=== PATIENT | male | born 1965 | race Caucasian/White ===

== ENCOUNTER 2021-10-22 18:51 | Inpatient (IN) | payer MEDICAID, SELFPAY ==
--- NOTE | ~2021-10-22 | XR_ITS ---
EXAMINATION: XR chest 1V portable Exam Date/Time: 10/22/2021 20:25 CDT CLINICAL HISTORY: sepsis, URINARY RETENTION, HX HTN, HX CVA Comparison: None available. RESULT: Lines, tubes, and devices: None. Lungs and pleura: Clear. Cardiomediastinal silhouette: Normal cardiomediastinal silhouette. Other: No acute osseous or upper abdominal finding. IMPRESSION: No acute cardiopulmonary process Reviewed, dictated and finalized at location K.
--- NOTE | ~2021-10-22 | CT_ITS ---
EXAMINATION: CT abdomen pelvis wo con DATE: 10/22/2021 20:50 INDICATION: rule out stone, sepsis TECHNIQUE: Computed tomography (CT) of the abdomen and pelvis was performed without intravenous contr ast. Automated exposure control and iterative reconstruction technique were employed. The dose-length product was 1168.48 mGy-cm. COMPARISON: None FINDINGS: Lower thorax: Unremarkable. Liver: Normal. Biliary/Gallbladder: Gallbladder is collapsed. No bile duct dilation. Spleen: Normal. Pancreas: No mass or duct dilation. Adrenals:No mass. Kidneys: No mass, stone, or hydronephrosis. Bilateral perinephric stranding. GI tract: No small or large bowel dilation. Normal appendix. Mesentery/Peritoneum: No ascites, mass, or free air. Retroperitoneum: No mass. Pelvis: Warren catheter. Marked bladder wall thickening and surrounding inflammatory change. Inflammat ion surrounding the prostate, seminal vesicles, extending into the knees rectal fat. Innumerable subc entimeter inguinal and pelvic lymph nodes. Bones/Soft Tissues: Soft tissues and body wall unremarkable. No acute osseous finding. Additional Findings: None. IMPRESSION: Severe cystitis, with possible involvement of the prostate and seminal vesicles, and possible ascendi ng infection. No CT evidence of nephrolithiasis or obstructive uropathy. Reviewed, dictated and finalized at location K. IMPRESSION: Severe cystitis, with possible involvement of the prostate and seminal vesicles , and possible ascending infection. No CT evidence of nephrolithiasis or obstru ctive uropathy.
[2021-10-22 18:56] VITALS: BP 167/104; PULSE 110; RESP 20; TEMP 37.7; O2SAT 96
--- NOTE | 2021-10-22 19:00 | ECG_ITS ---
Measurements Intervals Allison Rate: 107 P: 44 SD: 151 QRS: 68 QRSD: 97 T: 63 QT: 325 QTc: 435 Interpretive Statements SINUS TACHYCARDIA INCOMPLETE RIGHT BUNDLE BRANCH BLOCK LOW QRS VOLTAGE IN PRECORDIAL LEADS MINIMAL Q WAVES- INFERIOR LEADS BASELINE WANDER- I, II, V2 BORDERLINE ECG Electronically Signed On 10-24-2021 12:20:42 CDT by Jonel Bhatia D.O.
--- NOTE | 2021-10-22 19:00 | ED.MALEGU ---
HPI - Male Genitourinary General Chief complaint: Urogenital-Male Stated complaint: UTI Time Seen by Provider: 10/22/21 18:59 Source: patient and EMS Mode of arrival: EMS Limitations: no limitations History of Present Illness HPI Narrative: The patient is a 56-year-old male with history of hypertension, CVA, presenting to the emergency department for evaluation of painful urination. Patient states he has had painful urination over the past 3 days, reports dysuria, hesitancy, frequency. Patient reports he has to strain to urinate. He denies any fever, chills, nausea or vomiting. He denies flank pain, suprapubic pain or testicle pain. Patient denies any penile discharge. Patient denies rhinorrhea, cough, congestion, sore throat. Denies known history of COVID. States he recently received a fourth booster. Patient states that he has been eating and drinking at baseline. Per nurse at [facility] and [facility], they received a phone call from the nurse practitioner joan stating that the patient's white blood cell count was greater than 19, and that she wanted him to be evaluated in the ED. Per nurse at the facility, he is not taking any antibiotics at this time. Pt was recently sent to [facility] following admission at [facility] from 10/06-10/08/2021. Related Data Allergies Allergy/AdvReac Type Severity Reaction Status Date / Time No Known Allergies Allergy Verified 10/22/21 19:01 Review of Systems Review of Systems: CONSTITUTIONAL: Denies fever, chills, or sweats. EYES: Denies visual changes, redness, or discharge. ENT: Denies rhinorrhea, congestion, sore throat, or otalgia. CARDIOVASCULAR: Denies chest pain, palpitations, or edema. RESPIRATORY: Denies cough or dyspnea. GASTROINTESTINAL: Denies abdominal pain, nausea, vomiting, or diarrhea. GENITOURINARY: Reports dysuria without hematuria SKIN: Denies rash or itching. MUSCULOSKELETAL: Denies back pain, joint pain, or myalgia. NEUROLOGIC: Denies headache, numbness, or weakness. [facility] Social History Social History (Updated 10/22/21 @ 19:11 by Catalina Ashford MD) Smoking status: Never smoker Alcohol intake: never Substance use: never Living arrangements: assisted living Occupation/Education: unemployed Gender identity (if verbalized by the patient): Male Exam Narrative: GENERAL: Awake, alert, conversant HEAD: Normocephalic, atraumatic. EYES: PERRLA and EOMI. ENT: Nares clear, no rhinorrhea or epistaxis. Mucous membranes moist. NECK: Supple. CHEST: No respiratory distress, breathing even and non labored HEART: Tachycardic rate, sinus rhythm ABDOMEN:Non distended, non tender throughout all 4 quadrants, no suprapubic tenderness, no flank tenderness, no rebound, no rigidity, No guarding EXTREMITIES: Normal range of motion. No edema. SKIN: Warm, dry, no rash. NEURO:No focal deficits. Alert and oriented x3 Course Vital Signs Vital signs: Vital Signs Temperature 37.7 C H 10/22/21 18:56 Pulse Rate 110 H 10/22/21 18:56 Respiratory Rate 20 10/22/21 18:56 Blood Pressure 167/104 H 10/22/21 18:56 Pulse Oximetry 96 10/22/21 18:56 Temperature 37.7 C H 10/22/21 18:56 Pulse Rate 110 H 10/22/21 18:56 Respiratory Rate 20 10/22/21 18:56 Blood Pressure 167/104 H 10/22/21 18:56 Pulse Oximetry 96 10/22/21 18:56 MDM - Male Genitourinary MDM Narrative Medical decision making narrative: Patient presenting for evaluation of difficulty with urination, found to have urinary retention no significant reproducible pain on exam. Patient noted to be tachycardic, febrile with concern for sepsis. Patient was given 30 mL/kg fluid bolus and started on broad-spectrum antibiotics. He was given IV Tylenol. Noted to have a significant leukocytosis without lactic acidosis. No acute kidney injury. Urinalysis is somewhat concerning for possible urinary tract infection, however patient did have a C
[2021-10-22 19:29] LABS: Basophils Absolute Auto 0.1 K/mm3 (0.0-0.1); Basophils Percent Auto 0.3 % (0.2-1.2); Eosinophils Absolute Auto 0.1 K/mm3 (0-0.3); Eosinophils Percent Auto 0.5 % (0-4.4); Hematocrit 43.1 % (42.0-52.0); Hemoglobin 13.6 g/dL (14.0-18.0); Immature Granulocyte Absolute 0.12 K/mm3 (0.00-0.031); Immature Granulocyte Percent A 0.6 % (0-0.5); Lymphocytes Absolute Auto 1.55 K/mm3 (0.9-3.2); Mean Corpuscular HGB Conc 31.6 g/dl (32-36); Mean Corpuscular Hemoglobin 28.2 pg (26-34); Mean Corpuscular Volume 89.2 fl (80-100); Mean Platelet Volume 9.5 fl (7.4-10.4); Monocytes Absolute Auto 1.3 K/mm3 (0.1-0.6); Monocytes Percent Auto 6.7 % (2.6-8.5); Neutrophils Absolute Auto 16.2 K/mm3 (1.3-6.7); Neutrophils Percent Auto 83.9 % (45.5-73.1); Platelet Count Result 371 k/mm3 (150-375); Red Blood Count 4.83 M/mm3 (4.6-6.20); Red Cell Distribution Width 14.5 % (11.5-14.5); White Blood Count 19.3 K/mm3 (4.5-10.0)
[2021-10-22 19:38] LABS: Lactic Acid Reflex 1.9 mmol/L (0.7-2.0)
[2021-10-22 19:43] LABS: Appearance Urine Slightly Cloudy (Clear); Bilirubin Urine Negative (Negative); Blood Urine 3+ (Negative); Glucose Urine UA Negative (Negative); Ketones Urine Negative (Negative); Leukocyte Esterase Ur Trace LEU/UL (Negative); Nitrate Urine Negative (Negative); Protein Urine 2+ mg/dL (Negative); Specific Grav Ur 1.025 (1.001-1.035)
[2021-10-22 19:49] LABS: Bacteria Urine Trace /hpf; Mucus Urine Rare /lpf; RBC Urine >75 /hpf (0-2); WBC Urine 31-50 /hpf
[2021-10-22 19:53] LABS: Add Urine Microscopic? YES; Color Urine Dark Yellow (Yellow)
[2021-10-22 19:57] LABS: Alanine Aminotransferase 30 U/L (4-50); Alkaline Phosphatase 110 U/L (38-126); Anion Gap 10 mmol/L (8-16); Aspartate Amino Transferase 29 U/L (17-59); Bilirubin,Total 0.3 mg/dL (0.2-1.3); Blood Urea Nitrogen 13 mg/dL (9-20); CRP 14.1 mg/dL (<1.0); Calcium 8.9 mg/dL (8.4-10.2); Carbon Dioxide 24 mmol/L (22-30); Chloride 102 mmol/L (98-107); Estimated CRCL calculation 127 ml/min; Estimated Glomerular Filt Rate > 60; Glucose 213 mg/dL (65-110); Sodium 136 mmol/L (137-145)
[2021-10-22 20:21] LABS: Influenza A QL RT-PCR Negative (Negative); Influenza B QL RT-PCR Negative (Negative); SARS-CoV-2 RNA PCR Negative
[2021-10-22] MEDS: TAMSULOSIN HCL 0.4 MG CAPSULE PO (22:23)
--- NOTE | 2021-10-22 22:30 | PC.NURSE ---
Pt cleansed of bowel incontinence and new depend was placed. Phone was plugged in per request.
[2021-10-22] MEDS: SODIUM CHLORIDE 0.9% IV 500 ML 999 ML (23:15)
[2021-10-22] MEDS: CIPROFLOXACIN 400 MG/D5W 200ML 200 ML 200 MG IVPB (23:16)
--- NOTE | 2021-10-22 23:27 | PC.NURSE ---
Full 3,400ml sespsis fluid bolus has been infused, last 400ml hanging upon transport to the floor. unable to properly document bolus in the MAR and duplicate order was also entered. RN did inform Deepa KEMP on that full bolus has been hung.
[2021-10-23 00:05] VITALS: BP 153/99; PULSE 101; RESP 18; TEMP 37.2; O2SAT 96; BMI 33.5
--- NOTE | 2021-10-23 00:09 | ADMGEN ---
This patient, Art Garner, was admitted to Medical Room 342-01. Patient/family oriented to hospital policies and general routines including ID bracelet, bed and alarms, visiting hours, pain management, procedures, bathroom and other care routines, personal items, smoking policy, room service/diet, and visiting hours. Information on how to activate the Rapid Response Team has been discussed. Patient/Family are encouraged to report perceived risks to care and to ask questions if they do not understand what they are told or what they should do.
--- NOTE | 2021-10-23 02:07 | PM.IMHP ---
H&P: HPI History of Present Illness Date/Time: Greater than 30 minutes spent reviewing chart, evaluating, treating, and counseling patient. Anticipate greater than 48 hours admission, will admit as inpatient. 10/23/21 02:07 56 yo M PMHx of stroke, HTN. Presents with trouble urinating, dysuria, and hematuria for the past 3 days. He states this has never happened before. Has required argueta in the past, but nothing recently and no chronic issues with urinating. Patient denies fevers/chills, SOB, CP, palpitations, n/v/d/c, blood in stool. In ED. labs remarkable for WBC 19.3K, glucose 213. UA positive for blood, leuks. Urine cxs done and blood cx drawn. Patient initially given a dose of rocephin and then started on cipro. Urology consulted. Patient also received 2 L IVF. Chief Complaint: dysuria Review of Systems Review of Systems: 10 point ROS negative unless otherwise specified per HPI [facility] Family History Family History Mother Acute myocardial infarction Father Heart disease Social History Social History (Updated 10/22/21 @ 19:11 by Catalina Ashford MD) Smoking status: Never smoker Alcohol intake: former Substance use: never Living arrangements: assisted living Occupation/Education: unemployed Gender identity (if verbalized by the patient): Male Spiritual care concerns: No Meds Home Medications and Allergies Home Medications Medication Instructions Recorded Confirmed Type acetaminophen 650 mg PO Q4H PRN 10/23/21 10/23/21 History atorvastatin 10 mg PO HS 10/23/21 10/23/21 History cyanocobalamin (vitamin B-12) 50 mcg PO DAILY 10/23/21 10/23/21 History [Vitamin B-12] ergocalciferol (vitamin D2) 50 mcg PO DAILY 10/23/21 10/23/21 History escitalopram oxalate [Lexapro] 10 mg PO HS 10/23/21 10/23/21 History lisinopril 10 mg PO DAILY 10/23/21 10/23/21 History ondansetron 4 mg PO Q6H PRN 10/23/21 10/23/21 History Allergies Allergy/AdvReac Type Severity Reaction Status Date / Time No Known Allergies Allergy Verified 10/22/21 19:01 Vital Signs Vital Signs - 24 hr 10/22/21 18:56 10/23/21 00:05 Temperature 99.9 F H 99 F Pulse Rate 110 H 101 H Respiratory Rate 20 18 Blood Pressure 167/104 H 153/99 H Pulse Oximetry 96 96 Exam Const: General: comfortable and no acute distress HENMT: Mouth: Yes moist mucous membranes Eyes: General: appearance normal, both eyes and all related structures Resp: Auscultation: clear to auscultation bilaterally Cardio: Rate: tachycardic Rhythm: regular rhythm GI: GI Palp: Yes Soft to palpation and Yes Tenderness to palpation present (GI) (suprapubic) Auscultation: normal bowel sounds Other: nontender Urinary Catheter: Urinary Catheter: patent and draining Skin: General skin exam: normal color Extrem: Right lower extremity: normal to inspection Left lower extremity: normal to inspection Psych: Mental Status: mental status grossly normal H&P: Results Labs Labs: Short CBC 10/22/21 Range/Units 19:20 WBC 19.3 H (4.5-10.0) K/mm3 Hgb 13.6 L (14.0-18.0) g/dL Hct 43.1 (42.0-52.0) % Plt Count 371 (150-375) k/mm3 BMP 10/22/21 19:20 Sodium 136 L Potassium 4.0 Chloride 102 Carbon Dioxide 24 BUN 13 Creatinine 0.70 Glucose 213 H Calcium 8.9 Liver Function 10/22/21 Range/Units 19:20 Total Bilirubin 0.3 (0.2-1.3) mg/dL AST 29 (17-59) U/L ALT 30 (4-50) U/L Alkaline Phosphatase 110 (38-126) U/L Albumin 4.0 (3.5-5.1) g/dL Urine 10/22/21 Range/Units 19:20 Urine Color Dark yellow (Yellow) Urine Appearance Slightly cloudy (Clear) Urine pH 6.0 (5.0-9.0) Ur Specific [place] 1.025 (1.001-1.035) Urine Protein 2+ H (Negative) mg/dL Urine Glucose (UA) Negative (Negative) mg/dL Assessment and Plan Assessment and plan (1) Acute prostatitis: Code(s): N41.0 - Acute prostatitis Stat
[2021-10-23 05:32] VITALS: BP 144/92; PULSE 104; RESP 18; TEMP 36.6; O2SAT 95
[2021-10-23 06:19] LABS: Hematocrit 41.2 % (42.0-52.0); Hemoglobin 13.3 g/dL (14.0-18.0); Mean Corpuscular HGB Conc 32.3 g/dl (32-36); Mean Corpuscular Hemoglobin 28.2 pg (26-34); Mean Corpuscular Volume 87.5 fl (80-100); Mean Platelet Volume 9.9 fl (7.4-10.4); Platelet Count Result 376 k/mm3 (150-375); Red Blood Count 4.71 M/mm3 (4.6-6.20); Red Cell Distribution Width 14.2 % (11.5-14.5); White Blood Count 19.3 K/mm3 (4.5-10.0)
[2021-10-23 06:31] LABS: Alanine Aminotransferase 31 U/L (4-50); Albumin Level 3.5 g/dL (3.5-5.1); Alkaline Phosphatase 108 U/L (38-126); Anion Gap 8 mmol/L (8-16); Aspartate Amino Transferase 24 U/L (17-59); Bilirubin,Total 0.4 mg/dL (0.2-1.3); Blood Urea Nitrogen 10 mg/dL (9-20); Calcium 8.7 mg/dL (8.4-10.2); Carbon Dioxide 22 mmol/L (22-30); Chloride 107 mmol/L (98-107); Estimated CRCL calculation 121 ml/min; Estimated Glomerular Filt Rate > 60; Glucose 151 mg/dL (65-110); Potassium 4.1 mmol/L (3.4-5.0); Sodium 137 mmol/L (137-145)
--- NOTE | 2021-10-23 08:45 | P.PNIM_ITS ---
Progress Note: A&P Assessment and Plan (1) Acute prostatitis: Code(s): N41.0 - Acute prostatitis Status: Acute Assessment and Plan: * Abd/Pel found Severe cystitis, with possible involvement of the prostate and seminal vesicles, and possible ascending infection. No CT evidence of nephrolithiasis or obstructive uropathy. * Urinary catheter in place * [place] urine with clot noted in the bag * Trend urine output * Urology consulted thank you for your help * Continue cipro * Urine and blood cx pending (2) Sepsis: Code(s): A41.9 - Sepsis, unspecified organism Status: Acute Assessment and Plan: * Sepsis as evidence by leukocytosis and tachycardia * Received 2 L IVF in the ED * lactic normal * infections looks to be related to UTI however will confirm with culture results * Trend WBC * Cipro on board (3) Hypertension: Code(s): I10 - Essential (primary) hypertension Status: Acute Assessment and Plan: * Current BP is 144/92 * continue lisinopril * Trend BP * Adjust therapy as indicated * Seems to be slightly high probably related to catheter (4) CVA (cerebral vascular accident): Code(s): I63.9 - Cerebral infarction, unspecified Status: Acute Assessment and Plan: * CVA was reported in the history * continue lipitor. * hold on aspirin due to hematuria (5) Depression: Code(s): F32.A - Depression, unspecified Status: Acute Assessment and Plan: * Continue Lexapro (6) Hyperglycemia: Code(s): R73.9 - Hyperglycemia, unspecified Status: Acute Assessment and Plan: * Glucose 151 * HbA1c 6.0 * No home medications * Accu cheks ac/hs * Consider starting sliding scale * trend glucose * adjust therapy as indicated (7) Abnormal urinalysis: Code(s): R82.90 - Unspecified abnormal findings in urine Status: Acute Assessment and Plan: * UA shows dark yellow urine 2+ protein, 3+ blood, trace leukocyte esterase, 31- 50 WBC, Trace bacteria * Cipro currently on board * Urine culture pending * Adjust therapy to culture results * trend urine output Time Spent With Patient Time with patient: Greater than 35 minutes Subjective Date/time seen: 10/23/21 0845 Interval history: 10/23/21 02:07 56 yo M PMHx of stroke, HTN. Presents with trouble urinating, dysuria, and hematuria for the past 3 days. He states this has never happened before. Has required argueta in the past, but nothing recently and no chronic issues with urinating. Patient denies fevers/chills, SOB, CP, palpitations, n/v/d/c, blood in stool. In ED. labs remarkable for WBC 19.3K, glucose 213. UA positive for blood, leuks. Urine cxs done and blood cx drawn. Patient initially given a dose of rocephin and then started on cipro. Urology consulted. Patient also received 2 L IVF. 10/23/21 0845 Patient seems to be doing okay today. Patient stated that he is having some issues with pain from the catheter. He also stated that he was having some frequency. Catheter did exhibit hematuria with clots her in the bag. White cells are still 19.3 today. Patient denies any chest pain, shortness a breath, nausea, vomiting, diarrhea, constipation, weakness or fatigue. Review of Systems Review of Systems: All systems reviewed & are unremarkable except as noted in HPI and below Exam
--- NOTE | 2021-10-23 08:45 | PM.IMPN ---
Progress Note: A&P Assessment and Plan (1) Acute prostatitis: Code(s): N41.0 - Acute prostatitis Status: Acute Assessment and Plan: Abd/Pel found Severe cystitis, with possible involvement of the prostate and seminal vesicles, and possible ascending infection. No CT evidence of nephrolithiasis or obstructive uropathy. Urinary catheter in place [place] urine with clot noted in the bag Trend urine output Urology consulted thank you for your help Continue cipro Urine and blood cx pending (2) Sepsis: Code(s): A41.9 - Sepsis, unspecified organism Status: Acute Assessment and Plan: Sepsis as evidence by leukocytosis and tachycardia Received 2 L IVF in the ED lactic normal infections looks to be related to UTI however will confirm with culture results Trend WBC Cipro on board (3) Hypertension: Code(s): I10 - Essential (primary) hypertension Status: Acute Assessment and Plan: Current BP is 144/92 continue lisinopril Trend BP Adjust therapy as indicated Seems to be slightly high probably related to catheter (4) CVA (cerebral vascular accident): Code(s): I63.9 - Cerebral infarction, unspecified Status: Acute Assessment and Plan: CVA was reported in the history continue lipitor. hold on aspirin due to hematuria (5) Depression: Code(s): F32.A - Depression, unspecified Status: Acute Assessment and Plan: Continue Lexapro (6) Hyperglycemia: Code(s): R73.9 - Hyperglycemia, unspecified Status: Acute Assessment and Plan: Glucose 151 HbA1c 6.0 No home medications Accu cheks ac/hs Consider starting sliding scale trend glucose adjust therapy as indicated (7) Abnormal urinalysis: Code(s): R82.90 - Unspecified abnormal findings in urine Status: Acute Assessment and Plan: UA shows dark yellow urine 2+ protein, 3+ blood, trace leukocyte esterase, 31-50 WBC, Trace bacteria Cipro currently on board Urine culture pending Adjust therapy to culture results trend urine output Time Spent With Patient Time with patient: Greater than 35 minutes Subjective Date/time seen: 10/23/21 0845 Interval history: 10/23/21 02:07 56 yo M PMHx of stroke, HTN. Presents with trouble urinating, dysuria, and hematuria for the past 3 days. He states this has never happened before. Has required argueta in the past, but nothing recently and no chronic issues with urinating. Patient denies fevers/chills, SOB, CP, palpitations, n/v/d/c, blood in stool. In ED. labs remarkable for WBC 19.3K, glucose 213. UA positive for blood, leuks. Urine cxs done and blood cx drawn. Patient initially given a dose of rocephin and then started on cipro. Urology consulted. Patient also received 2 L IVF. 10/23/21 0845 Patient seems to be doing okay today. Patient stated that he is having some issues with pain from the catheter. He also stated that he was having some frequency. Catheter did exhibit hematuria with clots her in the bag. White cells are still 19.3 today. Patient denies any chest pain, shortness a breath, nausea, vomiting, diarrhea, constipation, weakness or fatigue. Review of Systems Review of Systems: All systems reviewed & are unremarkable except as noted in HPI and below Exam Const: General: cooperative, no acute distress, well developed, alert, awake, tired appearing and uncomfortable Nutritional Appearance: well nourished Orientation/consciousness: oriented to person, oriented to place, oriented to time and patient oriented x3 Limitations: no limitations HENMT: Head: normal to inspection Ears: hearing grossly normal bilaterally General nose exam: Normal external nose present Mouth: Yes Normal oral and palatal mucosa present, Yes lip normal and Yes tongue normal Teeth and gingiva: abnormal tooth and associated gingiva and poor
[2021-10-23] MEDS: CHOLECALCIFEROL 1,000 UNITS TABLET 2000 UNITS PO (08:50)
[2021-10-23] MEDS: lisinopriL 10 MG TABLET PO (08:50)
[2021-10-23] MEDS: TAMSULOSIN HCL 0.4 MG CAPSULE PO (08:51)
[2021-10-23] MEDS: CIPROFLOXACIN 400 MG/D5W 200ML 200 ML 200 MG IVPB ×2 (08:52→20:23)
[2021-10-23 14:00] VITALS: BP 152/68; PULSE 97; RESP 18; TEMP 37.2; O2SAT 96
--- NOTE | 2021-10-23 14:39 | WPDURCON ---
Assessment and Plan Assessment and plan (1) Acute prostatitis: Code(s): N41.0 - Acute prostatitis Status: Acute Assessment and Plan: Continue IV antibiotics, tailor to urine culture results. I suspect his urine culture will be negative, but would recommend 14-21 of antibiotics for the prostatitis. (2) Acute urinary retention: Code(s): R33.8 - Other retention of urine Status: Acute Assessment and Plan: Keep argueta catheter in for 7-10 days then f/u for a voiding trial. Start Flomax. Will watch from a distance. (3) BPH (benign prostatic hyperplasia): Code(s): N40.0 - Benign prostatic hyperplasia without lower urinary tract symptoms Status: Acute Urology Consult Note HPI Date Seen: 10/23/21 Requesting Physician: Dusty Eason DO Primary Care Provider: Steve Harvey MD Consult Narrative Narrative: Art Garner is a 56 year old male who presented from [facility] yesterday for acute onset of dysuria, hesitancy, straining and urinary frequency x 3 days. He was afebrile, but tachycardic, has a WBC of 19.3 and a creatinine of 0.70 as well as a UA that is suggestive of a UTI. His urine and blood cultures are still pending. He had a argueta placed and retention was noted but there was no amount of residual urine noted from the ER. He had a CT scan as well that noted severe cystitis, possible involvement of prostate and seminal vesicales as well as ascending infection on 10/22/21. He states that prior to his ER visit he was struggling with a slow stream, hesitancy and straining with urination. He has never been on OAB medication but states he did take a medication for BPH in the past. He has never seen a urologist and doesn't remember what medication he took for BPH. He also denies a history of chronic UTI's. Review of Systems Cardiovascular: Cardiovascular: Denies chest pain Respiratory: Respiratory: Reports no additional respiratory complaints Gastrointestinal: Gastrointestinal: Reports abdominal pain, Denies nausea and Denies vomiting Genitourinary: Genitourinary: Denies hematuria, Denies dysuria, Denies flank pain, Reports urinary frequency, Reports urinary hesitancy and Reports urinary urgency [facility] Family History Family History Mother Acute myocardial infarction Father Heart disease Social History Social History Smoking status: Never smoker Alcohol intake: former Substance use: never Living arrangements: assisted living Occupation/Education: unemployed Gender identity (if verbalized by the patient): Male Spiritual care concerns: No Meds Home Medications and Allergies Home Medications Medication Instructions Recorded Confirmed Type acetaminophen 650 mg PO Q4H PRN 10/23/21 10/23/21 History atorvastatin 10 mg PO HS 10/23/21 10/23/21 History cyanocobalamin (vitamin B-12) 50 mcg PO DAILY 10/23/21 10/23/21 History [Vitamin B-12] ergocalciferol (vitamin D2) 50 mcg PO DAILY 10/23/21 10/23/21 History escitalopram oxalate [Lexapro] 10 mg PO HS 10/23/21 10/23/21 History lisinopril 10 mg PO DAILY 10/23/21 10/23/21 History ondansetron 4 mg PO Q6H PRN 10/23/21 10/23/21 History Allergies Allergy/AdvReac Type Severity Reaction Status Date / Time No Known Allergies Allergy Verified 10/22/21 19:01 Vital Signs Vital Signs - 24 hr 10/22/21 18:56 10/23/21 00:05 10/23/21 05:32 Temperature 99.9 F H 99 F 98 F Pulse Rate 110 H 101 H 104 H Respiratory Rate 20 18 18 Blood Pressure 167/104 H 153/99 H 144/92 H Pulse Oximetry 96 96 95 Exam Resp: Effort & Inspection: normal respiratory effort Cardio: Rate: tachycardic GI: GI Palp: Yes Soft to palpation and No Tenderness to palpation present (GI) : General: Yes no CVA tenderness Urinary Catheter: Urinary Catheter: patent and draining and urine clear Extrem: Ge
[2021-10-23] MEDS: ESCITALOPRAM OXALATE 10 MG TABLET PO (20:23)
[2021-10-23] MEDS: ATORVASTATIN 10 MG TABLET PO (20:23)
[2021-10-23 20:41] VITALS: BP 126/94; PULSE 88; RESP 18; TEMP 37.3; O2SAT 97
[2021-10-24 04:56] VITALS: BP 144/78; PULSE 87; RESP 16; TEMP 36.8; O2SAT 98
[2021-10-24 06:21] LABS: Hemoglobin 13.1 g/dL (14.0-18.0); Mean Corpuscular HGB Conc 31.2 g/dl (32-36); Mean Corpuscular Hemoglobin 28.2 pg (26-34); Mean Corpuscular Volume 90.3 fl (80-100); Mean Platelet Volume 9.9 fl (7.4-10.4); Platelet Count Result 418 k/mm3 (150-375); Red Blood Count 4.65 M/mm3 (4.6-6.20); Red Cell Distribution Width 14.3 % (11.5-14.5); White Blood Count 15.2 K/mm3 (4.5-10.0)
[2021-10-24 06:42] LABS: Alanine Aminotransferase 28 U/L (4-50); Albumin Level 3.6 g/dL (3.5-5.1); Alkaline Phosphatase 94 U/L (38-126); Anion Gap 8 mmol/L (8-16); Aspartate Amino Transferase 26 U/L (17-59); Bilirubin,Total 0.3 mg/dL (0.2-1.3); Blood Urea Nitrogen 13 mg/dL (9-20); Calcium 8.8 mg/dL (8.4-10.2); Carbon Dioxide 23 mmol/L (22-30); Chloride 107 mmol/L (98-107); Estimated CRCL calculation 121 ml/min; Estimated Glomerular Filt Rate > 60; Glucose 139 mg/dL (65-110); Magnesium 2.1 mg/dL (1.6-2.3); Sodium 138 mmol/L (137-145)
--- NOTE | 2021-10-24 07:35 | WPDUROPN2 ---
Progress Note: A&P Assessment and Plan (1) BPH (benign prostatic hyperplasia): Code(s): N40.0 - Benign prostatic hyperplasia without lower urinary tract symptoms Status: Acute (2) Acute prostatitis: Code(s): N41.0 - Acute prostatitis Status: Acute (3) Acute urinary retention: Code(s): R33.8 - Other retention of urine Status: Acute Assessment and Plan: Urine culture growing Gram-negative bacilli. Blood cultures negative, thus far. Continue current antibiotics pending completion of culture results. I would favor deferring voiding trial until Thursday. Subjective Subjective Date/Time Seen: 10/24/21 07:35 Persistent irritable voiding symptoms Review of Systems Cardiovascular: Cardiovascular: Denies chest pain, Denies lightheadedness, Denies palpitations and Denies dyspnea Respiratory: Respiratory: Denies dyspnea Gastrointestinal: Gastrointestinal: Denies diarrhea, Denies nausea and Denies vomiting Genitourinary: Genitourinary: Denies hematuria and Denies dysuria Endocrine: Endocrine: Denies palpitations Exam Const: General: no acute distress Resp: Effort & Inspection: normal respiratory effort GI: Inspection: non-distended GI Palp: No abdominal tenderness and No Guarding due to palpation present (GI) Auscultation: normal bowel sounds Objective Data Vital Signs Vital Signs: Vital Signs - 24 hr 10/23/21 14:00 10/23/21 20:41 10/24/21 04:56 Temperature 99.0 F 99.2 F 98.3 F Pulse Rate 97 88 87 Respiratory Rate 18 18 16 Blood Pressure 152/68 H 126/94 H 144/78 H Pulse Oximetry 96 97 98 Intake/Output Intake/Output: Intake & Output 10/21/21 10/22/21 10/23/21 10/24/21 23:59 23:59 23:59 23:59 Intake Total 4050 2386 50 Output Total 5125 1200 Balance 8954 -6137 -6792 Meds/Results Medications: Active Medications Generic Name Dose Route Start Last Admin Trade Name Freq PRN Reason Stop Dose Admin Acetaminophen 650 mg 10/22/21 21:56 Acetaminophen 325 Mg Tablet PO Q4H PRN Mild Pain (1-3) or Fever Atorvastatin Calcium 10 mg 10/23/21 21:00 10/23/21 20:23 Atorvastatin 10 Mg Tablet PO 10 mg HS SARAH Administration Escitalopram Oxalate 10 mg 10/23/21 21:00 10/23/21 20:23 Escitalopram Oxalate 10 Mg Tablet PO 10 mg HS SARAH Administration Ciprofloxacin/Dextrose 200 mls @ 200 mls/hr 10/23/21 09:00 10/23/21 21:23 Cipro 400 Mg/D5w 200 Ml IVPB Infused Q12H SARAH Infusion Lisinopril 10 mg 10/23/21 09:00 10/23/21 08:50 Lisinopril 10 Mg Tablet PO 10 mg DAILY SARAH Administration Ondansetron HCl 4 mg 10/22/21 21:56 Ondansetron Inj 4 Mg/2 Ml Vial IV PUSH Q4H PRN Nausea Tamsulosin HCl 0.4 mg 10/23/21 09:00 10/23/21 08:51 Tamsulosin Hcl 0.4 Mg Capsule PO 0.4 mg QAM SARAH Administration Vitamin D 2,000 units 10/23/21 09:00 10/23/21 08:50 Cholecalciferol 1,000 Units Tablet PO 2,000 units DAILY SARAH Administration Radiology Results: ITS Impressions Abdomen/Pelvis CT 10/22/21 21:01 IMPRESSION: Severe cystitis, with possible involvement of the prostate and seminal vesicles, and possible ascending infection. No CT evidence of nephrolithiasis or obstructive uropathy. Chest X-Ray 10/22/21 21:08 IMPRESSION: No acute cardiopulmonary process Labs Labs: Laboratory Results - last 24 hr 10/24/21 10/24/21 05:17 05:17 WBC 15.2 H RBC 4.65 Hgb 13.1 L Hct 42.0 MCV 90.3 MCH 28.2 MCHC 31.2 L RDW 14.3 Plt Count 418 H MPV 9.9 Sodium 138 Potassium 4.0 Chloride 107 Carbon Dioxide 23 Anion Gap 8 BUN 13 Creatinine 0.70 Estim Creat Clear Calc 121 Estimated GFR > 60 Glucose 139 H Calcium 8.8 Magnesium 2.1 Total Bilirubin 0.3 AST 26 ALT 28 Alkaline Phosphatase 94 Total Protein 8.0 Albumin 3.6 Quality VTE Prophylaxis VTE prophylaxis: mechanical ordered
[2021-10-24] MEDS: lisinopriL 10 MG TABLET PO (10:19)
[2021-10-24] MEDS: TAMSULOSIN HCL 0.4 MG CAPSULE PO (10:19)
[2021-10-24] MEDS: CHOLECALCIFEROL 1,000 UNITS TABLET 2000 UNITS PO (10:19)
[2021-10-24] MEDS: CIPROFLOXACIN 400 MG/D5W 200ML 200 ML 200 MG IVPB ×2 (10:25→21:11)
--- NOTE | 2021-10-24 12:00 | PM.IMPN ---
Progress Note: A&P Assessment and Plan (1) Bacteremia: Code(s): R78.81 - Bacteremia Status: Acute Assessment and Plan: Gram positive cocci in clusters in the anaroebic bottle Currently on cipro Await sensitivities Adjust to sensitivities (2) Acute prostatitis: Code(s): N41.0 - Acute prostatitis Status: Acute Assessment and Plan: Abd/Pel found Severe cystitis, with possible involvement of the prostate and seminal vesicles, and possible ascending infection. No CT evidence of nephrolithiasis or obstructive uropathy. Urinary catheter in place Urine is clear chirag Trend urine output Urology consulted thank you for your help Continue cipro Urine Culture grew gram negative bacilli isolated Blood culture found gram positive cocci in clusters in the anaerobic bottle Will await sensitivities (3) Sepsis: Code(s): A41.9 - Sepsis, unspecified organism Status: Acute Assessment and Plan: Sepsis as evidence by leukocytosis and tachycardia Received 2 L IVF in the ED lactic normal infections looks to be related to UTI however will confirm with culture results Urine Culture grew gram negative bacilli isolated Blood culture found gram positive cocci in clusters in the anaerobic bottle WBC trending down and is currently 15.2 Cipro on board (4) Hypertension: Code(s): I10 - Essential (primary) hypertension Status: Acute Assessment and Plan: Current BP is 144/78 continue lisinopril Trend BP Adjust therapy as indicated Seems to be slightly high probably related to catheter (5) CVA (cerebral vascular accident): Code(s): I63.9 - Cerebral infarction, unspecified Status: Acute Assessment and Plan: CVA was reported in the history continue lipitor. hold on aspirin due to hematuria (6) Depression: Code(s): F32.A - Depression, unspecified Status: Acute Assessment and Plan: Continue Lexapro (7) Hyperglycemia: Code(s): R73.9 - Hyperglycemia, unspecified Status: Acute Assessment and Plan: Glucose 139 HbA1c 6.0 No home medications Accu cheks ac/hs Consider starting sliding scale trend glucose adjust therapy as indicated (8) UTI (urinary tract infection): Code(s): N39.0 - Urinary tract infection, site not specified Status: Acute Assessment and Plan: UA shows dark yellow urine 2+ protein, 3+ blood, trace leukocyte esterase, 31-50 WBC, Trace bacteria Cipro currently on board Urine culture gram negative bacilli isolated Adjust therapy to culture results trend urine output (9) BPH (benign prostatic hyperplasia): Code(s): N40.0 - Benign prostatic hyperplasia without lower urinary tract symptoms Status: Acute Assessment and Plan: Continue tamsulosin Trend urine output Urology on board Urinary catheter in place Time Spent With Patient Time with patient: Greater than 35 minutes Subjective Date/time seen: 10/24/21 12:00 Interval history: 10/23/21 02:07 56 yo M PMHx of stroke, HTN. Presents with trouble urinating, dysuria, and hematuria for the past 3 days. He states this has never happened before. Has required argueta in the past, but nothing recently and no chronic issues with urinating. Patient denies fevers/chills, SOB, CP, palpitations, n/v/d/c, blood in stool. In ED. labs remarkable for WBC 19.3K, glucose 213. UA positive for blood, leuks. Urine cxs done and blood cx drawn. Patient initially given a dose of rocephin and then started on cipro. Urology consulted. Patient also received 2 L IVF. 10/23/21 7515 Patient seems to be doing okay today. Patient stated that he is having some issues with pain from the catheter. He also stated that he was having some frequency. Catheter did exhibit hematuria with clots her in the b
--- NOTE | 2021-10-24 12:00 | P.PNIM_ITS ---
Progress Note: A&P Assessment and Plan (1) Bacteremia: Code(s): R78.81 - Bacteremia Status: Acute Assessment and Plan: * Gram positive cocci in clusters in the anaroebic bottle * Currently on cipro * Await sensitivities * Adjust to sensitivities (2) Acute prostatitis: Code(s): N41.0 - Acute prostatitis Status: Acute Assessment and Plan: * Abd/Pel found Severe cystitis, with possible involvement of the prostate and seminal vesicles, and possible ascending infection. No CT evidence of nephrolithiasis or obstructive uropathy. * Urinary catheter in place * Urine is clear chirag * Trend urine output * Urology consulted thank you for your help * Continue cipro * Urine Culture grew gram negative bacilli isolated * Blood culture found gram positive cocci in clusters in the anaerobic bottle * Will await sensitivities (3) Sepsis: Code(s): A41.9 - Sepsis, unspecified organism Status: Acute Assessment and Plan: * Sepsis as evidence by leukocytosis and tachycardia * Received 2 L IVF in the ED * lactic normal * infections looks to be related to UTI however will confirm with culture results * Urine Culture grew gram negative bacilli isolated * Blood culture found gram positive cocci in clusters in the anaerobic bottle * WBC trending down and is currently 15.2 * Cipro on board (4) Hypertension: Code(s): I10 - Essential (primary) hypertension Status: Acute Assessment and Plan: * Current BP is 144/78 * continue lisinopril * Trend BP * Adjust therapy as indicated * Seems to be slightly high probably related to catheter (5) CVA (cerebral vascular accident): Code(s): I63.9 - Cerebral infarction, unspecified Status: Acute Assessment and Plan: * CVA was reported in the history * continue lipitor. * hold on aspirin due to hematuria (6) Depression: Code(s): F32.A - Depression, unspecified Status: Acute Assessment and Plan: * Continue Lexapro (7) Hyperglycemia: Code(s): R73.9 - Hyperglycemia, unspecified Status: Acute Assessment and Plan: * Glucose 139 * HbA1c 6.0 * No home medications * Accu cheks ac/hs * Consider starting sliding scale * trend glucose * adjust therapy as indicated (8) UTI (urinary tract infection): Code(s): N39.0 - Urinary tract infection, site not specified Status: Acute Assessment and Plan: * UA shows dark yellow urine 2+ protein, 3+ blood, trace leukocyte esterase, 31- 50 WBC, Trace bacteria * Cipro currently on board * Urine culture gram negative bacilli isolated * Adjust therapy to culture results * trend urine output (9) BPH (benign prostatic hyperplasia): Code(s): N40.0 - Benign prostatic hyperplasia without lower urinary tract symptoms Status: Acute Assessment and Plan: * Continue tamsulosin * Trend urine output * Urology on board * Urinary catheter in place Time Spent With Patient Time with patient: Greater than 35 minutes Subjective Date/time seen: 10/24/21 12:00 Interval history: 10/23/21 02:07 56 yo M PMHx of stroke, HTN. Presents with trouble urinating, dysuria, and hematuria for the past 3 days. He states this has never happened before.
[2021-10-24 14:24] VITALS: BP 133/76; PULSE 79; RESP 16; TEMP 36.2; O2SAT 97
[2021-10-24] MEDS: ATORVASTATIN 10 MG TABLET PO (21:11)
[2021-10-24] MEDS: ESCITALOPRAM OXALATE 10 MG TABLET PO (21:11)
[2021-10-24 21:45] VITALS: BP 135/67; PULSE 80; RESP 18; TEMP 36.6; O2SAT 97
[2021-10-25 05:49] LABS: Hematocrit 42.4 % (42.0-52.0); Hemoglobin 13.2 g/dL (14.0-18.0); Mean Corpuscular HGB Conc 31.1 g/dl (32-36); Mean Corpuscular Hemoglobin 28.3 pg (26-34); Mean Platelet Volume 9.4 fl (7.4-10.4); Platelet Count Result 443 k/mm3 (150-375); Red Blood Count 4.66 M/mm3 (4.6-6.20); Red Cell Distribution Width 14.3 % (11.5-14.5); White Blood Count 12.8 K/mm3 (4.5-10.0)
[2021-10-25 06:02] VITALS: BP 134/81; PULSE 82; RESP 16; TEMP 36.8; O2SAT 98
[2021-10-25 06:13] LABS: Alanine Aminotransferase 31 U/L (4-50); Albumin Level 3.5 g/dL (3.5-5.1); Alkaline Phosphatase 99 U/L (38-126); Anion Gap 10 mmol/L (8-16); Aspartate Amino Transferase 24 U/L (17-59); Bilirubin,Total < 0.1 mg/dL (0.2-1.3); Blood Urea Nitrogen 13 mg/dL (9-20); Calcium 8.5 mg/dL (8.4-10.2); Carbon Dioxide 23 mmol/L (22-30); Chloride 106 mmol/L (98-107); Estimated CRCL calculation 121 ml/min; Estimated Glomerular Filt Rate > 60; Glucose 180 mg/dL (65-110); Potassium 3.7 mmol/L (3.4-5.0); Sodium 139 mmol/L (137-145)
--- NOTE | 2021-10-25 07:10 | WPDUROPN2 ---
Progress Note: A&P Assessment and Plan (1) UTI (urinary tract infection): Code(s): N39.0 - Urinary tract infection, site not specified Status: Acute (2) BPH (benign prostatic hyperplasia): Code(s): N40.0 - Benign prostatic hyperplasia without lower urinary tract symptoms Status: Acute Assessment and Plan: Warren out for voiding trial today. Urine cx.: Proteus Blood cx.: 1 of 2 with gram pos. - likely contaminate. If voids, I'm comfortable with discharge on Levaquin x2 weeks. Subjective Subjective Date/Time Seen: 10/25/21 07:10 Comfortable, no complaints Review of Systems Cardiovascular: Cardiovascular: Denies chest pain, Denies lightheadedness, Denies palpitations and Denies dyspnea Respiratory: Respiratory: Denies dyspnea Gastrointestinal: Gastrointestinal: Denies diarrhea, Denies nausea and Denies vomiting Genitourinary: Genitourinary: Denies hematuria and Denies dysuria Endocrine: Endocrine: Denies palpitations Exam Const: General: no acute distress Resp: Effort & Inspection: normal respiratory effort GI: Inspection: non-distended GI Palp: No abdominal tenderness and No Guarding due to palpation present (GI) Auscultation: normal bowel sounds Objective Data Vital Signs Vital Signs: Vital Signs - 24 hr 10/24/21 14:24 10/24/21 21:45 10/25/21 06:02 Temperature 97.1 F L 97.8 F 98.2 F Pulse Rate 79 80 82 Respiratory Rate 16 18 16 Blood Pressure 133/76 135/67 134/81 Pulse Oximetry 97 97 98 Intake/Output Intake/Output: Intake & Output 10/22/21 10/23/21 10/24/21 10/25/21 23:59 23:59 23:59 23:59 Intake Total 4050 2386 1170 200 Output Total 5125 650 Balance 4050 -2739 -855 -450 Meds/Results Medications: Active Medications Generic Name Dose Route Start Last Admin Trade Name Freq PRN Reason Stop Dose Admin Acetaminophen 650 mg 10/22/21 21:56 Acetaminophen 325 Mg Tablet PO Q4H PRN Mild Pain (1-3) or Fever Atorvastatin Calcium 10 mg 10/23/21 21:00 10/24/21 21:11 Atorvastatin 10 Mg Tablet PO 10 mg HS SARAH Administration Escitalopram Oxalate 10 mg 10/23/21 21:00 10/24/21 21:11 Escitalopram Oxalate 10 Mg Tablet PO 10 mg HS SARAH Administration Ciprofloxacin/Dextrose 200 mls @ 200 mls/hr 10/23/21 09:00 10/24/21 22:15 Cipro 400 Mg/D5w 200 Ml IVPB Infused Q12H SARAH Infusion Lisinopril 10 mg 10/23/21 09:00 10/24/21 10:19 Lisinopril 10 Mg Tablet PO 10 mg DAILY SARAH Administration Ondansetron HCl 4 mg 10/22/21 21:56 Ondansetron Inj 4 Mg/2 Ml Vial IV PUSH Q4H PRN Nausea Tamsulosin HCl 0.4 mg 10/23/21 09:00 10/24/21 10:19 Tamsulosin Hcl 0.4 Mg Capsule PO 0.4 mg QAM SARAH Administration Vitamin D 2,000 units 10/23/21 09:00 10/24/21 10:19 Cholecalciferol 1,000 Units Tablet PO 2,000 units DAILY SARAH Administration Radiology Results: ITS Impressions Abdomen/Pelvis CT 10/22/21 21:01 IMPRESSION: Severe cystitis, with possible involvement of the prostate and seminal vesicles, and possible ascending infection. No CT evidence of nephrolithiasis or obstructive uropathy. Chest X-Ray 10/22/21 21:08 IMPRESSION: No acute cardiopulmonary process Labs Labs: Laboratory Results - last 24 hr 10/25/21 10/25/21 05:23 05:24 WBC 12.8 H RBC 4.66 Hgb 13.2 L Hct 42.4 MCV 91.0 MCH 28.3 MCHC 31.1 L RDW 14.3 Plt Count 443 H MPV 9.4 Sodium 139 Potassium 3.7 Chloride 106 Carbon Dioxide 23 Anion Gap 10 BUN 13 Creatinine 0.70 Estim Creat Clear Calc 121 Estimated GFR > 60 Glucose 180 H Calcium 8.5 Magnesium 2.0 Total Bilirubin < 0.1 L AST 24 ALT 31 Alkaline Phosphatase 99 Total Protein 7.0 Albumin 3.5 Quality VTE Prophylaxis VTE prophylaxis: mechanical ordered
[2021-10-25] MEDS: TAMSULOSIN HCL 0.4 MG CAPSULE PO (09:11)
[2021-10-25] MEDS: lisinopriL 10 MG TABLET PO (09:12)
[2021-10-25] MEDS: CIPROFLOXACIN 400 MG/D5W 200ML 200 ML 200 MG IVPB (09:12)
[2021-10-25] MEDS: CHOLECALCIFEROL 1,000 UNITS TABLET 2000 UNITS PO (09:12)
--- NOTE | 2021-10-25 12:30 | PM.IMPN ---
Progress Note: A&P Assessment and Plan (1) Bacteremia: Code(s): R78.81 - Bacteremia Status: Acute Assessment and Plan: Gram positive cocci in clusters in the anaroebic bottle Currently on cipro Await sensitivities Seems to be a contaminate since it grew staph epidermis (2) Acute prostatitis: Code(s): N41.0 - Acute prostatitis Status: Acute Assessment and Plan: Abd/Pel found Severe cystitis, with possible involvement of the prostate and seminal vesicles, and possible ascending infection. No CT evidence of nephrolithiasis or obstructive uropathy. Urine is clear chirag Trend urine output Urology consulted thank you for your help change Cipro to Levaquin PO Urine Culture grew proteus mirabilis Will await sensitivities (3) Sepsis: Code(s): A41.9 - Sepsis, unspecified organism Status: Acute Assessment and Plan: Sepsis as evidence by leukocytosis and tachycardia Received 2 L IVF in the ED lactic normal infections looks to be related to UTI however will confirm with culture results Urine Culture grew gram negative bacilli isolated Blood culture found gram positive cocci in clusters in the anaerobic bottle WBC trending down and is currently 12.8 Cipro, changed to PO Levaquin (4) Hypertension: Code(s): I10 - Essential (primary) hypertension Status: Acute Assessment and Plan: Current BP is 120/78 continue lisinopril Trend BP Adjust therapy as indicated Seems to be slightly high probably related to catheter (5) CVA (cerebral vascular accident): Code(s): I63.9 - Cerebral infarction, unspecified Status: Acute Assessment and Plan: CVA was reported in the history continue lipitor. hold on aspirin due to hematuria (6) Depression: Code(s): F32.A - Depression, unspecified Status: Acute Assessment and Plan: Continue Lexapro (7) Hyperglycemia: Code(s): R73.9 - Hyperglycemia, unspecified Status: Acute Assessment and Plan: Glucose 180 HbA1c 6.0 No home medications Accu cheks ac/hs Consider starting sliding scale trend glucose adjust therapy as indicated (8) UTI (urinary tract infection): Code(s): N39.0 - Urinary tract infection, site not specified Status: Acute Assessment and Plan: UA shows dark yellow urine 2+ protein, 3+ blood, trace leukocyte esterase, 31-50 WBC, Trace bacteria Cipro changed to Levaquin PO Urine culture proteus Mirabilis Adjust therapy to culture results trend urine output (9) BPH (benign prostatic hyperplasia): Code(s): N40.0 - Benign prostatic hyperplasia without lower urinary tract symptoms Status: Acute Assessment and Plan: Continue tamsulosin Trend urine output Urology on board Void trial seems to be successful Time Spent With Patient Time with patient: Greater than 35 minutes Subjective Date/time seen: 10/25/21 12:30 Interval history: 10/23/21 02:07 56 yo M PMHx of stroke, HTN. Presents with trouble urinating, dysuria, and hematuria for the past 3 days. He states this has never happened before. Has required argueta in the past, but nothing recently and no chronic issues with urinating. Patient denies fevers/chills, SOB, CP, palpitations, n/v/d/c, blood in stool. In ED. labs remarkable for WBC 19.3K, glucose 213. UA positive for blood, leuks. Urine cxs done and blood cx drawn. Patient initially given a dose of rocephin and then started on cipro. Urology consulted. Patient also received 2 L IVF. 10/23/21 0845 Patient seems to be doing okay today. Patient stated that he is having some issues with pain from the catheter. He also stated that he was having some frequency. Catheter did exhibit hematuria with clots her in the bag. White cells are still 19.3 today. Patient denies a
--- NOTE | 2021-10-25 12:30 | P.PNIM_ITS ---
Progress Note: A&P Assessment and Plan (1) Bacteremia: Code(s): R78.81 - Bacteremia Status: Acute Assessment and Plan: * Gram positive cocci in clusters in the anaroebic bottle * Currently on cipro * Await sensitivities * Seems to be a contaminate since it grew staph epidermis (2) Acute prostatitis: Code(s): N41.0 - Acute prostatitis Status: Acute Assessment and Plan: * Abd/Pel found Severe cystitis, with possible involvement of the prostate and seminal vesicles, and possible ascending infection. No CT evidence of nephrolithiasis or obstructive uropathy. * Urine is clear chirag * Trend urine output * Urology consulted thank you for your help * change Cipro to Levaquin PO * Urine Culture grew proteus mirabilis * Will await sensitivities (3) Sepsis: Code(s): A41.9 - Sepsis, unspecified organism Status: Acute Assessment and Plan: * Sepsis as evidence by leukocytosis and tachycardia * Received 2 L IVF in the ED * lactic normal * infections looks to be related to UTI however will confirm with culture results * Urine Culture grew gram negative bacilli isolated * Blood culture found gram positive cocci in clusters in the anaerobic bottle * WBC trending down and is currently 12.8 * Cipro, changed to PO Levaquin (4) Hypertension: Code(s): I10 - Essential (primary) hypertension Status: Acute Assessment and Plan: * Current BP is 120/78 * continue lisinopril * Trend BP * Adjust therapy as indicated * Seems to be slightly high probably related to catheter (5) CVA (cerebral vascular accident): Code(s): I63.9 - Cerebral infarction, unspecified Status: Acute Assessment and Plan: * CVA was reported in the history * continue lipitor. * hold on aspirin due to hematuria (6) Depression: Code(s): F32.A - Depression, unspecified Status: Acute Assessment and Plan: * Continue Lexapro (7) Hyperglycemia: Code(s): R73.9 - Hyperglycemia, unspecified Status: Acute Assessment and Plan: * Glucose 180 * HbA1c 6.0 * No home medications * Accu cheks ac/hs * Consider starting sliding scale * trend glucose * adjust therapy as indicated (8) UTI (urinary tract infection): Code(s): N39.0 - Urinary tract infection, site not specified Status: Acute Assessment and Plan: * UA shows dark yellow urine 2+ protein, 3+ blood, trace leukocyte esterase, 31- 50 WBC, Trace bacteria * Cipro changed to Levaquin PO * Urine culture proteus Mirabilis * Adjust therapy to culture results * trend urine output (9) BPH (benign prostatic hyperplasia): Code(s): N40.0 - Benign prostatic hyperplasia without lower urinary tract symptoms Status: Acute Assessment and Plan: * Continue tamsulosin * Trend urine output * Urology on board * Void trial seems to be successful Time Spent With Patient Time with patient: Greater than 35 minutes Subjective Date/time seen: 10/25/21 12:30 Interval history: 10/23/21 02:07 56 yo M PMHx of stroke, HTN. Presents with trouble urinating, dysuria, and hematuria for the past 3 days. He states this has never happened before. Has required argueta in the past, but nothing recently and no ch
[2021-10-25 14:00] VITALS: BP 120/78; PULSE 78; RESP 20; TEMP 36.6; O2SAT 98
[2021-10-25] MEDS: ATORVASTATIN 10 MG TABLET PO (20:02)
[2021-10-25] MEDS: ESCITALOPRAM OXALATE 10 MG TABLET PO (20:02)
[2021-10-25 20:06] VITALS: BP 147/81; PULSE 77; RESP 16; TEMP 36.7; O2SAT 98
[2021-10-26 06:18] VITALS: BP 147/62; PULSE 66; RESP 16; TEMP 36.4; O2SAT 100
[2021-10-26 06:23] LABS: Hematocrit 44.4 % (42.0-52.0); Hemoglobin 14.1 g/dL (14.0-18.0); Mean Corpuscular HGB Conc 31.8 g/dl (32-36); Mean Corpuscular Hemoglobin 28.3 pg (26-34); Mean Platelet Volume 9.3 fl (7.4-10.4); Platelet Count Result 512 k/mm3 (150-375); Red Blood Count 4.99 M/mm3 (4.6-6.20); Red Cell Distribution Width 14.2 % (11.5-14.5); White Blood Count 12.4 K/mm3 (4.5-10.0)
[2021-10-26] MEDS: lisinopriL 10 MG TABLET PO (08:10)
[2021-10-26] MEDS: CHOLECALCIFEROL 1,000 UNITS TABLET 2000 UNITS PO (08:10)
[2021-10-26] MEDS: levoFLOXacin 750 MG TABLET PO (08:10)
[2021-10-26] MEDS: TAMSULOSIN HCL 0.4 MG CAPSULE PO (08:10)
--- NOTE | 2021-10-26 09:45 | P.DS_ITS ---
DS: Admitting Diagnosis Discharge Date 10/26/21 0945 Admitting Diagnosis Urosepsis DS: Discharge Diagnosis Discharge Diagnosis (1) Bacteremia: Code(s): R78.81 - Bacteremia Status: Acute Assessment and Plan: * Gram positive cocci in clusters in the anaroebic bottle * Currently on cipro * Await sensitivities * Seems to be a contaminate since it grew staph epidermis * Received vanco (2) Acute prostatitis: Code(s): N41.0 - Acute prostatitis Status: Acute Assessment and Plan: * Abd/Pel found Severe cystitis, with possible involvement of the prostate and seminal vesicles, and possible ascending infection. No CT evidence of nephrolithiasis or obstructive uropathy. * Urine is clear chirag * Trend urine output * Urology consulted thank you for your help * change Cipro to Levaquin PO * Urine Culture grew proteus mirabilis * Will await sensitivities (3) Sepsis: Code(s): A41.9 - Sepsis, unspecified organism Status: Acute Assessment and Plan: * Sepsis as evidence by leukocytosis and tachycardia * Received 2 L IVF in the ED * lactic normal * infections looks to be related to UTI however will confirm with culture results * Urine Culture grew gram negative bacilli isolated * Blood culture found gram positive cocci in clusters in the anaerobic bottle * WBC trending down and is currently 12.4 * Cipro, changed to PO Levaquin (4) Hypertension: Code(s): I10 - Essential (primary) hypertension Status: Acute Assessment and Plan: * Current BP is 147/62 * continue lisinopril * Trend BP * Adjust therapy as indicated * Seems to be slightly high probably related to catheter (5) CVA (cerebral vascular accident): Code(s): I63.9 - Cerebral infarction, unspecified Status: Acute Assessment and Plan: * CVA was reported in the history * continue lipitor. * hold on aspirin due to hematuria (6) Depression: Code(s): F32.A - Depression, unspecified Status: Acute Assessment and Plan: * Continue Lexapro (7) Hyperglycemia: Code(s): R73.9 - Hyperglycemia, unspecified Status: Acute Assessment and Plan: * Glucose 180 * HbA1c 6.0 * No home medications * Accu cheks ac/hs * Consider starting sliding scale * trend glucose * adjust therapy as indicated (8) UTI (urinary tract infection): Code(s): N39.0 - Urinary tract infection, site not specified Status: Acute Assessment and Plan: * UA shows dark yellow urine 2+ protein, 3+ blood, trace leukocyte esterase, 31- 50 WBC, Trace bacteria * Cipro changed to Levaquin PO * Urine culture proteus Mirabilis * Adjust therapy to culture results * trend urine output (9) BPH (benign prostatic hyperplasia): Code(s): N40.0 - Benign prostatic hyperplasia without lower urinary tract symptoms Status: Acute Assessment and Plan: * Continue tamsulosin * Trend urine output * Urology on board * Void trial seems to be successful * Post residual void was 0 DS: Summary Hospital Course Hospital Course: Patient is 56 year old male with a past medical history of CVA, HTN, dysuria who presented to the ED with complaints of dysuria and hematuria. Abdomen and pelvis CT
--- NOTE | 2021-10-26 09:45 | PM.DS ---
DS: Admitting Diagnosis Discharge Date 10/26/21 0945 Admitting Diagnosis Urosepsis DS: Discharge Diagnosis Discharge Diagnosis (1) Bacteremia: Code(s): R78.81 - Bacteremia Status: Acute Assessment and Plan: Gram positive cocci in clusters in the anaroebic bottle Currently on cipro Await sensitivities Seems to be a contaminate since it grew staph epidermis Received vanco (2) Acute prostatitis: Code(s): N41.0 - Acute prostatitis Status: Acute Assessment and Plan: Abd/Pel found Severe cystitis, with possible involvement of the prostate and seminal vesicles, and possible ascending infection. No CT evidence of nephrolithiasis or obstructive uropathy. Urine is clear chirag Trend urine output Urology consulted thank you for your help change Cipro to Levaquin PO Urine Culture grew proteus mirabilis Will await sensitivities (3) Sepsis: Code(s): A41.9 - Sepsis, unspecified organism Status: Acute Assessment and Plan: Sepsis as evidence by leukocytosis and tachycardia Received 2 L IVF in the ED lactic normal infections looks to be related to UTI however will confirm with culture results Urine Culture grew gram negative bacilli isolated Blood culture found gram positive cocci in clusters in the anaerobic bottle WBC trending down and is currently 12.4 Cipro, changed to PO Levaquin (4) Hypertension: Code(s): I10 - Essential (primary) hypertension Status: Acute Assessment and Plan: Current BP is 147/62 continue lisinopril Trend BP Adjust therapy as indicated Seems to be slightly high probably related to catheter (5) CVA (cerebral vascular accident): Code(s): I63.9 - Cerebral infarction, unspecified Status: Acute Assessment and Plan: CVA was reported in the history continue lipitor. hold on aspirin due to hematuria (6) Depression: Code(s): F32.A - Depression, unspecified Status: Acute Assessment and Plan: Continue Lexapro (7) Hyperglycemia: Code(s): R73.9 - Hyperglycemia, unspecified Status: Acute Assessment and Plan: Glucose 180 HbA1c 6.0 No home medications Accu cheks ac/hs Consider starting sliding scale trend glucose adjust therapy as indicated (8) UTI (urinary tract infection): Code(s): N39.0 - Urinary tract infection, site not specified Status: Acute Assessment and Plan: UA shows dark yellow urine 2+ protein, 3+ blood, trace leukocyte esterase, 31-50 WBC, Trace bacteria Cipro changed to Levaquin PO Urine culture proteus Mirabilis Adjust therapy to culture results trend urine output (9) BPH (benign prostatic hyperplasia): Code(s): N40.0 - Benign prostatic hyperplasia without lower urinary tract symptoms Status: Acute Assessment and Plan: Continue tamsulosin Trend urine output Urology on board Void trial seems to be successful Post residual void was 0 DS: Summary Hospital Course Hospital Course: Patient is 56 year old male with a past medical history of CVA, HTN, dysuria who presented to the ED with complaints of dysuria and hematuria. Abdomen and pelvis CT showed severe cystitis with involvement of prostate and seminal has. Urine also displayed clots with hematuria. Warren catheter was inserted due to retention and patient was started on IV Cipro. UA did grow Proteus Mirabilis. Urology was consulted and started the patient on Flomax. Patient also presented with sepsis with elevated white count and tachycardia. Patient did receive 2 L of fluids in the ED and lactic acid returned back to normal. Since the start of IV antibiotics patient's white blood cell count has trended down and is 12.4. Patient also grew Staph epidermidis in 1 bottle of blood cultures which looks to be contaminant. Willis
[2021-10-26 10:07] LABS: Alanine Aminotransferase 33 U/L (4-50); Albumin Level 3.4 g/dL (3.5-5.1); Alkaline Phosphatase 102 U/L (38-126); Anion Gap 6 mmol/L (8-16); Aspartate Amino Transferase 26 U/L (17-59); Bilirubin,Total 0.2 mg/dL (0.2-1.3); Blood Urea Nitrogen 14 mg/dL (9-20); Calcium 8.8 mg/dL (8.4-10.2); Carbon Dioxide 29 mmol/L (22-30); Chloride 103 mmol/L (98-107); Estimated CRCL calculation 96 ml/min; Estimated Glomerular Filt Rate > 60; Glucose 206 mg/dL (65-110); Potassium 4.1 mmol/L (3.4-5.0); Sodium 138 mmol/L (137-145)
[2021-10-26 10:11] LABS: EDCOVIDSCREEN Negative (Negative)
== END 2021-10-26 10:44 | DRG 720 ==
LOC: ANHED 21:32 → ANH3MED 22:43
PROVIDERS: Emergency Medicine; Admitting Provider Internal Medicine; Emergency Provider Emergency Medicine; Visit Provider Nurse Practitioner
DX: A41.9 Sepsis, unspecified organism (principal); N41.0 Acute prostatitis; N30.90 Cystitis, unspecified without hematuria; N40.1 Benign prostatic hyperplasia with lower urinary tract symptoms; R33.8 Other retention of urine; R39.11 Hesitancy of micturition; R39.16 Straining to void; R39.12 Poor urinary stream; I10 Essential (primary) hypertension; Z86.73 Personal history of transient ischemic attack (TIA), and cerebral infarction without residual deficits; N41.9 Inflammatory disease of prostate, unspecified; R33.9 Retention of urine, unspecified; F32.A Depression, unspecified; R73.9 Hyperglycemia, unspecified; Z20.822 Contact with and (suspected) exposure to COVID-19; Z79.82 Long term (current) use of aspirin; B96.4 Proteus (mirabilis) (morganii) as the cause of diseases classified elsewhere
CPT/HCPCS: 36415; 51702; 71045; 74176; 80053; 81001; 83036; 83605; 83735; 85025; 85027; 86140; 87040; 87077; 87086; 87088; 87186; 87426; 87502; 93005; 96365; 96366; 96367; 96368; 99285; A9270; C9803; G0378; G0379; J0131; J0696; J0744; J3370; J7030; J7040; U0003; U0005